=== PATIENT | female | born 1955 | race Caucasian/White ===

== ENCOUNTER → 2018-01-17 15:31 | Outpatient (CLI) | payer OTHER, SELFPAY ==
--- NOTE | 2018-01-17 15:34 | MM_ITS ---
MM Dig screening mamm BI w/CAD ORDERING PHYSICIAN : Ben Madison PATIENT AGE: 62 years GENDER: Female COMPARISON: May 2016, April 2014, & December INDICATION: ITS.REASON: SCREENING 62-year-old no hormones no new complaints. Noncontributory family history TECHNIQUE: Standard CC and MLO images were obtained. R2 CAD reviewed. FINDINGS: Moderately dense inhomogeneous breast pattern bilaterally RIGHT BREAST:. Significant new findings LEFT BREAST:Stable appearance. Again the more focal fatty feature at the medial left breast is noted. The relative denser tissue seen towards superior left breast is a long-standing stable feature since 2010 IMPRESSION: . Stable bilateral mammogram with no significant new findings. Moderately dense heterogeneous breast bilaterally. Follow-up in one year recommended and encouraged BI-RADS Category: 1 Negative RECOMMENDED FOLLOW-UP: 1YR 1 YEAR FOLLOW-UP (A letter has been sent to the patient regarding results of the study.)
== END ==
PROVIDERS: PCP Internal Medicine; Visit Provider Internal Medicine
DX: Z12.31 Encounter for screening mammogram for malignant neoplasm of breast (principal)
CPT/HCPCS: 77067

== ENCOUNTER → 2018-04-11 10:16 | Outpatient (CLI) | payer OTHER, SELFPAY ==
[2018-04-11 11:05] LABS: Blood Urea Nitrogen 14 mg/dL (7-18); Creatinine,Serum 0.84 mg/dL (0.55-1.02); Estimated Glomerular Filt Rate 68 ml/min (>60); GFR (African American) 83 ML/MIN (>60)
--- NOTE | 2018-04-11 11:09 | CT_ITS ---
CT abdomen pelvis w con INDICATION: ITS.REASON: MICROHEMATURIA ORDERING PHYSICIAN: Ben Madison PATIENT AGE: 63 years COMPARISON: None. TECHNIQUE: IV contrast utilized: 75 cc of Isovue-370 IV withscanning at 70 seconds abdomen and pelvis; & then with delayed scanning through abdomen 5 minutes thereafter.. No oral contrast given Axial images obtained with sagittal and coronal reformats. All CT scans at the facility use one or more dose reduction, viz: automated exposure control, ma/kV adjustment per patient size (including targeted exams where dose is matched to indication, i.e. head), or iterative reconstruction technique. FINDINGS: Lung bases clear. No active disease. Heart normal size with coronary artery calcification and stent LAD I believe evident Liver. Benign hepatic cysts . Largest at anterior dome of liver left lobe, up to 2.8 cm maximum transverse diameter x 1.7 cm height. There also small cyst at the inferior right lobe one measuring 7 mm posterior right lobe and another measuring 6 mm just above the gallbladder fossa. Gallbladder. No gallstones. No biliary ductal dilatation. Pancreas. No lesions. No inflammation.. Pancreatic duct is identified, appears normal upper normal caliber/diameter. Spleen appears normal to upper normal size 12 CT in length. . Adrenals unremarkable. No significant findings. TRACT.... No urinary tract calculi nor obstruction. No discrete pathology evident Kidneys appear normal in size with normal enhancement bilaterally. No significant mass lesions. Generous extrarenal pelvis bilaterally but the ureters appear normal in caliber with no calculi along the course of either ureter. Pelvis. Urinary bladder appears satisfactory. Upper normal wall thickness anteriorly Ovaries appear small measuring less than 2.5 cm bilaterally. I suspect there is a small 1 cm x 1.2 cm cyst at the left ovary coronal image 41. Suspect a small uterus remains GI TRACT. Moderate stool throughout the colon most evident right colon. Low-lying cecum. Appendix not clearly identified but I see no evidence of appendicitis. With small bowel unremarkable. Stomach unremarkable. Question perhaps slightly generous soft tissue density at perineum/anal verge region & near introitus which warrants clinical correlation.. May merely be volume averaging of structures here. . Osseous:.. Small sclerotic foci at the sacrum a most likely benign bone islands. Benign Sclerotic changes about the pubis may reflect multigravida pelvis . No significant appearing osseous lesions. Degenerative changes in spine. A pars defects evident at L5 bilaterally along with prominent facet arthropathy and hypertrophy at this level. Moderate facet arthropathy L4/5. Degenerative disc changes L-spine most evident at L2/3 with notable foraminal disc bulge and encroachment at this L2/3 level IMPRESSION.... 1. No urinary tract calculi nor obstruction. No renal mass No definitive pathology identified .. Note Generous extrarenal pelvis bilaterally noted but no hydronephrosis ... Ureters unremarkable. Normal caliber. No calculi. ... Urinary bladder overall satisfactory, with upper normal wall thickness anteriorly 2... Benign hepatic cysts incidentally noted 3. Only Question slightly generous soft tissue density at perineum/anal verge. Likely volume averaging of structures but warrants correlation
== END ==
PROVIDERS: PCP Internal Medicine; Visit Provider Internal Medicine
DX: R31.29 Other microscopic hematuria (principal)
CPT/HCPCS: 36415; 74177; 82565; 84520; Q9967

== ENCOUNTER → 2018-11-06 14:48 | Outpatient (CLI) | payer OTHER, SELFPAY ==
[2018-11-06 15:33] LABS: Troponin I < 0.02 ng/ml (0.00-0.06)
== END ==
PROVIDERS: Visit Provider Internal Medicine
DX: R07.9 Chest pain, unspecified (principal); I25.10 Atherosclerotic heart disease of native coronary artery without angina pectoris
CPT/HCPCS: 36415; 84484; 93005

== ENCOUNTER → 2018-12-05 06:09 | Outpatient (CLI) | payer OTHER, SELFPAY ==
--- NOTE | 2018-12-05 06:14 | NM_ITS ---
CARDIOLITE SPECT MYOCARDIAL PERFUSION [facility], REST AND STRESS: History: Coronary artery disease, history of SD, hypertension, hyperlipidemia, family history, chest pain and shortness of breath. Procedure: Patient exercised on Sam protocol 7 minutes and 15 seconds, resting heart rate was 61 bpm resting blood pressure 172/90, with exercise maximum heart rate achieved was 1 50 bpm which is equal to 96% of the maximum predicted heart rate and a blood pressure was 08/22/1989. Test was started due to shortness of breath and fatigue patient denied any complained of chest pain. Patient has good exercise capacity achieved 10.1mets of workload on treadmill, the blood pressure response to exercise was hypertensive. Electrocardiogram: Resting electrocardiogram showed sinus rhythm, with exercise 1.5 ST segment depression noted from the baseline EKG. The patient exercised Myoview is positive for ischemia. Cardiac stress and resting SPECT images: Cardiac stress and resting SPECT images were obtained using technetium 99 Myoview 32.6 mCi at stress and 10.2 mCi at rest. Gated SPECT further analysis of segmental wall motion and calculation of ejection fraction also done. Cardiac stress and the suspect images show uniform myocardial activity without segmental perfusion abnormality, computer derived ejection fraction 51% with no regional wall motion abnormality, right ventricle is normal size and contractility. Conclusion: 1. The EKG portion of the exercise Myoview is positive for ischemia, patient has good exercise capacity achieved 10.1mets of workload on treadmill, the blood pressure response to exercise was hypertensive, there was no exercise-induced chest discomfort. 2. No scintigraphic evidence of reversible ischemia seen at this level of exercise, computer derived ejection fraction is 51% with no regional wall motion abnormality, right ventricle is normal size and contractility.
--- NOTE | 2018-12-05 06:14 | CA_ITS ---
PROCEDURE: 2-D M-mode and color Doppler study INDICATIONS FOR THE TEST: Chest pain X COPD Heart Murmur Tobacco Smoking Palpitations Fatigue Syncope Edema HypertensionXDiabetes Mellitus Rheumatic Fever SOB DOEXObesity HyperlipidemiaX Family History HD Additional History CAD PATIENT INFORMATION HEIGHT: 69 WEIGHT:157 GENDER: Female B/P:191/86 2-D/M-MODE INTERPRETATION: 2-D MEASUREMENTS OBSERVED VALUES IN CMS Right Ventricular Dimension (RVDd) 1.7 Interventricular Septum (Thickness)(IVsd) .8 Left Ventricular Internal Dimensions(LVIDd) 4.0 Left Ventricular Posterior Wall (Thickness)(LVPWd) .8 Aortic Root 2.7 Aortic Cusp Separation 1.6 Left Atrial Dimensions (LAD) 2.2 2D 1. Left atrium is qualitatively mildly enlarged, left ventricle is normal size, there is no concentric left ventricular hypertrophy, visually estimated ejection fraction approximately 55%, there is abnormal septal motion. 2. The right atrium and right ventricle are normal size and contractility. 3. The aortic valve is minimally thickened and fibrosed. 4. The mitral and tricuspid valve leaflets are minimally thickened. 5. Pulmonic valve is poorly visualized. 6. No significant pericardial effusion noted. DOPPLER INTERROGATION: Doppler interrogation of the aortic, mitral and tricuspid valvular presence of mild mitral and tricuspid regurgitation, tricuspid regurgitation jet velocity is inadequate for calculation of the right ventricular systolic pressure, grade 1 diastolic dysfunction seen without tissue Doppler evidence of raised left atrial pressure. CONCLUSION: 1. Mildly enlarged left atrium, normal left ventricular size, visually estimated ejection fraction 55%, there is abnormal septal motion. Grade 1 diastolic dysfunction seen without tissue Doppler evidence of raised left atrial pressure. 2. Mild mitral and tricuspid regurgitation 3. No significant pericardial effusion noted.
--- NOTE | 2018-12-05 11:20 | HMH.ITSHM ---
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 [] ranitidine carvedilol clopidoregl levothyroxine atorvastatin asa nitro
== END ==
PROVIDERS: PCP Internal Medicine; Visit Provider Internal Medicine Cardiovascular Disease
DX: I25.10 Atherosclerotic heart disease of native coronary artery without angina pectoris (principal); E78.49 Other hyperlipidemia; I10 Essential (primary) hypertension
CPT/HCPCS: 78452; 93017; 93306; A9502

== ENCOUNTER → 2019-01-08 12:53 | Outpatient (CLI) | payer OTHER, SELFPAY ==
--- NOTE | 2019-01-08 13:28 | US_ITS ---
US thyroid HISTORY: Follow-up thyroid nodules ITS.REASON: AMANDA ORDERING PHYSICIAN: Chava Delgado MD PATIENT AGE: 63 years Comparison: None FINDINGS: The right lobe of the thyroid gland measures 4.1 x 0.8 x 1.2 cm. A mixed nodule present in the mid polar region at 4 mm unchanged. A mixed hypoechoic nodule present in the lower pole at 5 x 3 mm nonspecific. This was not readily apparent on the previous exam. There is a small cyst in the upper pole at 2 mm and a small cyst in the lower pole at 2 mm. IMPRESSION: Small right thyroid nodules as described above. A new hypoechoic nodule present in the mid to lower pole at 5 x 3 mm. Probably benign. Continued follow-up recommended
== END ==
PROVIDERS: PCP Internal Medicine; Visit Provider Otolaryngology
DX: E06.3 Autoimmune thyroiditis (principal)
CPT/HCPCS: 76536

== ENCOUNTER → 2019-04-10 15:23 | Outpatient (CLI) | payer OTHER, SELFPAY ==
--- NOTE | 2019-04-10 15:26 | MM_ITS ---
PROCEDURE: MM DIG SCREENING MAMM BI W/CAD CLINICAL INDICATION: SCREENING There is no personal or family history of breast cancer COMPARISON: [facility] DIG MAMM-SCREEN THUY from 04/13/2014 [facility] DIG MAMM-SCREEN THUY from 05/09/2016 [facility] MM Dig screening mamm BI w/CAD from 01/17/2018 TECHNIQUE: Standard CC and MLO images were obtained. R2 CAD reviewed. FINDINGS: Moderate diffuse fibroglandular densities are seen in the central portions of both breasts and the findings are fairly symmetrical bilaterally. There are mole markers on each breast. There are few benign-appearing microcalcifications in each breast. There is no suspicious lesion and no suspicious microcalcifications. IMPRESSION: Moderate breast density with no suspicious lesions seen BI-RAD Category: 2 Benign Finding(s) FOLLOW-UP: 1YR 1 Year Follow-up (A letter has been sent to the patient regarding results of the study.) Dictated by: Dr. Rosalino Castelan MD 04/11/2019 12:[address] Rosalino Castelan MD in [place] 04/11/2019 12:19
== END ==
PROVIDERS: PCP Internal Medicine; Visit Provider Internal Medicine
DX: Z12.31 Encounter for screening mammogram for malignant neoplasm of breast (principal)
CPT/HCPCS: 77067

== ENCOUNTER → 2019-06-04 12:22 | Outpatient (CLI) | payer OTHER, SELFPAY ==
--- NOTE | 2019-06-04 12:23 | US_ITS ---
PROCEDURE: US THYROID CLINICAL INDICATION: Hypothyroidism Follow-up thyroid nodules COMPARISON: THY US thyroid from 01/08/2019 FINDINGS: Right lobe: 3.7 x 1.2 x 1.7 cm. 2 mm cyst upper pole. Spongiform 4 mm nodule mid polar region unchanged. Subtle 3 mm isoechoic area lower pole unchanged. Previously noted hypoechoic nodule in the lower pole not demonstrated on today's exam. Left lobe: Prior left thyroidectomy Isthmus: Additional findings: IMPRESSION: Previously noted hypoechoic nodule lower pole not demonstrated on today's study. Prior left thyroidectomy. No change other smaller nodules on the right which are not suspicious Dictated by: Lang Oakes MD 06/05/2019 16:15 Electronically signed by Lang Oakes MD in [place] 06/05/2019 16:15
== END ==
PROVIDERS: PCP Internal Medicine; Visit Provider Otolaryngology
DX: E03.9 Hypothyroidism, unspecified (principal)
CPT/HCPCS: 76536

== ENCOUNTER → 2020-04-02 09:56 | Outpatient (CLI) | payer MEDICARE, SELFPAY ==
[2020-04-02 10:01] LABS: Microscopic, Urine URINE MICROSCOPIC (MICROSCOPIC)
[2020-04-02 10:15] LABS: Appearance,Urine CLEAR (Clear); Basophils % 0.2 % (0.1-2.0); Blood, Urine 2+ (Negative); Color,Urine DK YELLOW (Yellow); Eosinophils % 0.5 % (0.1-12.0); Glucose,Urine (UA) 2+ (Negative); Hematocrit 45.1 % (37.0-47.0); Hemoglobin 15.4 g/dL (12.2-16.2); Ketones,Urine Negative (Negative); Leukocyte Esterase,Urine Negative (Negative); Lymphocytes # 0.5 K/mm3 (0.7-4.5); Lymphocytes % 5.7 % (10-50); Mean Corpuscular HGB Conc 34.3 g/dL (31.8-35.4); Mean Corpuscular Volume 90.3 fl (81-99); Mean Platelet Volume 7.9 fl (7.4-10.4); Monocytes # 0.5 K/mm3 (0.1-1.0); Monocytes % 5.2 % (1.7-9.3); Neutrophils # 7.9 K/mm3 (1.8-7.8); Neutrophils % 88.4 % (37.0-80.0); Nitrate,Urine Negative (Negative); Platelet Count 152 K/mm3 (142-424); Protein,Urine Negative (Negative); Red Blood Count 4.99 M/mm3 (4.20-5.40); Red Cell Distribution Width 13.6 % (11.5-17.5); Specific Gravity, Urine 1.015 (1.005-1.030)
[2020-04-02 10:19] LABS: Bilirubin,Urine Negative (Negative); MANUAL DIFFERENTIAL MANUAL DIFFERENTIAL (MANUAL DIFF)
[2020-04-02 10:23] LABS: Bacteria,Urine 3+ /lpf; Squamous Epithelial Cell,Urine Occasional #/hpf (0-5)
[2020-04-02 10:32] LABS: Eosinophils % 1 % (0-3); Lymphocytes % 8 % (10-50); Monocytes % 6 % (2-9); Neutrophils % 85 % (42-76); Platelet Estimate Normal; RBC Morphology Normal; Total Cells Counted 100
--- NOTE | 2020-04-02 10:44 | XR_ITS ---
PROCEDURE: XR ACUTE ABDOMEN SERIES Referring Doctor: Ben Madison Patient Age:65Y CLINICAL INDICATION: ACUTE EPIGASTRIC PAIN COMPARISON: CR CXR CHEST(2 VIEWS-NOT PORTABLE) from 09/08/[address] abdomen pelvis w con from 04/11/2018 FINDINGS: Acute abdominal series includes upright chest with flat and upright views of abdomen Upright chest: Stable chest versus August 2014 Lungs well expanded and clear with no active disease. No free air beneath the diaphragm. Heart la and mediastinal structures appears satisfactory. Flat and upright views abdomen: No bowel dilatation nor evidence of obstruction. There is generous gas throughout the large bowel a most evident throughout splenic flexure with moderate stool and gas throughout the transverse and descending colon but more generous stool is seen at the cecum and right colon with moderate gas right colon but Small bowel. Minimal gas. No appreciable dilatation. No significant air-fluid levels at small bowel . Spleen is upper normal in size. Liver unremarkable on plain film. Small huan of calcification medial to the left kidney is most likely vascular rather than calculus (vascular calcifications but no renal calculi were seen on a 2018 CT) . IMPRESSION: No significant bowel dilatation or obstruction . Increased gas is seen throughout the large bowel, and most notable at the splenic flexure... Moderate stool throughout the colon most evident at right colon and cecum Small bowel unremarkable The spleen upper normal in size Dictated by: Mateo Rai MD 04/02/2020 11:16 Mateo Rai MD in [place] 04/02/2020 11:16
[2020-04-02 10:59] LABS: Amylase 6003 U/L (30-110)
== END ==
LOC: LAB 09:57 → RAD 10:41
PROVIDERS: PCP Internal Medicine; Visit Provider Internal Medicine
DX: R10.13 Epigastric pain (principal)
CPT/HCPCS: 36415; 74021; 81001; 82150; 85007; 85025; 87086; 87088; 87186

== ENCOUNTER → 2020-04-05 12:03 | Outpatient (CLI) | payer MEDICARE, SELFPAY ==
--- NOTE | 2020-04-05 12:12 | US_ITS ---
PROCEDURE: US ABDOMEN COMPLETE CLINICAL INDICATION: ACUTE PANCREATITIS, EPIGASTRIC PAIN COMPARISON: CT ABDPELW CT abdomen pelvis w con from 04/11/2018 FINDINGS: PANCREAS: Unremarkable. No obvious mass or abnormal fluid collection. No ductal dilatation LIVER: There is a 3 cm cyst in the left hepatic lobe. The liver has an otherwise unremarkable. There is appropriate direction of blood flow within a non dilated portal vein. There are at least 2 other DISH in ule small Paddock cyst. RIGHT KIDNEY: Unremarkable. Normal size and echogenicity. No hydronephrosis LEFT KIDNEY: Unremarkable. Normal size and echogenicity. No hydronephrosis GALLBLADDER: There is sludge and stones within the gallbladder. Gallbladder wall is thickened measuring up to 6 mm. There is questionable minimal amount of pericholecystic fluid. Common bile duct is mildly prominent at approximately 7 mm. AORTA: No evidence of aneurysmal dilatation. SPLEEN: Unremarkable. Normal size and echogenicity ASCITES: None demonstrated. IMPRESSION: Cholelithiasis with sludge and thickened gallbladder wall and questionable minimal pericholecystic fluid along with mildly prominent common bile duct. Dictated by: Lang Oakes MD 04/05/2020 13:27 Lang Oakes MD in [place] 04/05/2020 13:27
[2020-04-05 12:34] LABS: Amylase 150 U/L (30-110)
== END ==
PROVIDERS: Visit Provider Internal Medicine
DX: R10.13 Epigastric pain (principal); K85.90 Acute pancreatitis without necrosis or infection, unspecified
CPT/HCPCS: 36415; 76700; 82150

== ENCOUNTER → 2020-04-14 11:07 | Outpatient (CLI) | payer MEDICARE, SELFPAY ==
[2020-04-14 12:15] LABS: Basophils # 0.1 K/mm3 (0-0.2); Basophils % 0.9 % (0.1-2.0); Eosinophils # 0.1 K/mm3 (0.0-0.4); Eosinophils % 1.4 % (0.1-12.0); Hematocrit 42.2 % (37.0-47.0); Hemoglobin 13.6 g/dL (12.2-16.2); Lymphocytes % 19.5 % (10-50); Mean Corpuscular HGB Conc 32.2 g/dL (31.8-35.4); Mean Corpuscular Hemoglobin 29.6 pg (27.0-31.2); Mean Corpuscular Volume 91.8 fl (81-99); Mean Platelet Volume 7.6 fl (7.4-10.4); Monocytes # 0.3 K/mm3 (0.1-1.0); Monocytes % 6.2 % (1.7-9.3); Neutrophils # 3.7 K/mm3 (1.8-7.8); Neutrophils % 71.9 % (37.0-80.0); Platelet Count 141 K/mm3 (142-424); Red Cell Distribution Width 13.2 % (11.5-17.5); White Blood Count 5.1 K/mm3 (4.8-10.8)
[2020-04-14 13:44] LABS: Coronavirus 19 IgG Antibody Positive (Negative); Coronavirus 19 IgM Antibody Negative (Negative)
[2020-04-14 14:01] LABS: Alanine Aminotransferase 17 U/L (12-78); Albumin Level 4.1 g/dl (3.5-5.0); Albumin/Globulin Ratio 2.1 (1.1-1.8); Alkaline Phosphatase 90 U/L (38-126); Amylase 119 U/L (30-110); Anion Gap 12.3 mEq/L (5-15); Aspartate Amino Transferase 24 U/L (14-36); Bilirubin,Total 0.7 mg/dl (0.2-1.3); Blood Urea Nitrogen 25 mg/dl (7-17); Calcium 9.1 mg/dl (8.4-10.2); Carbon Dioxide 31 mmol/L (22.0-30.0); Chloride 101 mmol/L (98-107); Estimated Glomerular Filt Rate 56 ml/min (>60); GFR (African American) 67 ML/MIN (>60); Glucose 113 mg/dl (74-100); Lipase 184 U/L (23-300); Potassium 4.3 mmoL/L (3.5-5.1); Sodium 140 mmol/L (136-145); Total Protein,Serum 6.1 g/dl (6.3-8.2)
== END ==
PROVIDERS: Visit Provider Surgery
DX: K80.20 Calculus of gallbladder without cholecystitis without obstruction (principal); Z01.818 Encounter for other preprocedural examination; Z01.84 Encounter for antibody response examination; U07.1 COVID-19
CPT/HCPCS: 36415; 80053; 82150; 83690; 85025; 86328; 93005

== ENCOUNTER 2020-04-16 06:00 | Day surgery (SDC) | payer MEDICARE, SELFPAY ==
[2020-04-14 09:58] VITALS: BMI 23.6
[2020-04-16] VITALS (12 sets, daily range): BP systolic 174–190; BP diastolic 80–92; PULSE 53–65; RESP 12–18; TEMP 36.2–43; O2SAT 95–100
--- NOTE | 2020-04-16 07:47 | P.PN_ITS ---
[facility] Anesthesia Checklist - Structural Data Admitted From: Home Planned Operative Procedure/s: benjamin griffin Consent for Planned Operative Procedure(s) Verified: Yes - Additional verifications Anesthesia Reactions: No Hx Blood Transfusions: No Blood Transfusion Reaction: No - Airway Assessment C-Spine Mobility Assessed: Yes TMJ Mobility Assessed: Yes Dentition: Dentures-good fit - Neurological Assessment Level of Consciousness: Awake, Alert, Appropriate - Anesthesia Plan Anesthesia Risk discussed: Yes Anesthesia Plan: Verified ASA Class: III Anesthesia Type: General [facility] History I have reviewed the patient's past medical history: Yes Medical History: Reports:: Cardiomyopathy, Coronary Artery Disease, Gall Bladder Disease, Hiatal Hernia, Hyperlipidemia, Hypertension Denies:: Cancer, Diabetes Mellitus Type 1, Diabetes Mellitus Type 2, Internal Pacemaker, MRSA, Seizures *Have you ever received a pneumonia vaccine?: No *Have you received a flu vaccine this season?: No Other Medical History: Reports: Hypothyroidism. Denies: Blood Transfusion Reaction Anesthesia experience/problems:: none Other Surgeries: Yes: Cancer Surgery, Cardiac Catheterization, Colonoscopy, Coronary Stent, Thyroidectomy, Tubal Ligation. No: Pacemaker Amputation: No Fractures: No - *Social History Last grade of school completed: 11th or 12th Smoking Status: Never smoker Alcohol Intake: never Alcohol Intake Frequency:: other Substance Use Type: denies use *Occupational Status:: retired Housing: house *Travel in the last 8 weeks: None Family Hx:: Cancer, Heart Attack
--- NOTE | 2020-04-16 08:17 | P.OP_ITS ---
Date of procedure: 04/16/20 Pre-op Diagnosis:: Pancreatitis Chronic calculus cholecystitis Post-op Diagnosis:: Same Procedure performed:: Laparoscopic cholecystectomy Surgeon:: Clifford Burks MD PREFORMING MACHINE OPERATOR:: Dandre Michel Anesthesia: GETA Estimated blood loss (mL): 10 Clinical Note:: Preoperative labs revealed no significant liver function test abnormality. Patient's amylase/lipase were also essentially normal. After discussion with the patient concerning the risks and benefits she wished to proceed with cholecystectomy with no cholangiogram. Operative findings:: Infundibular thickening Operative note:: After informed consent was obtained, the patient was taken to the operating room and placed in the supine position. General anesthesia was induced and the abdomen was prepped and draped in a sterile fashion. After infiltration with local anesthetic an infraumbilical incision was made. A Veress needle was placed in position. The abdomen was insufflated. A 5 mm optical trocar was placed in position. Under direct visualization, a 12 mm trocar was placed in the subxiphoid position and 2 additional 5 mm trocars were placed in the right upper quadrant. The gallbladder was elevated up and over the liver margin. The tissue around the cystic duct was carefully dissected. 3 clips were placed proximally and the duct was transected with harmonic susy. Harmonic susy were then utilized to dissect the gallbladder away from the liver margin with careful attention to the control of the cystic artery. The gallbladder was placed in a retrieval bag and removed through the subxiphoid trocar site. The right upper quadrant was thoroughly irrigated. No active bleeding or bile leak was noted. Fascia at the subxiphoid trocar site was reapproximated utilizing the NeoClose device. The remaining trocars were removed. All wounds were irrigated and skin was closed with 4-0 Monocryl in a subcuticular fashion. Steri-Strips were applied. The patient's anesthetic agents were reversed and extubation was completed prior to transfer to recovery in stable condition. Condition: stable Disposition: PACU Specimens:: Gallbladder and contents Complications:: No immediate
--- NOTE | 2020-04-16 08:26 | P.PN_ITS ---
[facility] Anesthesia Record Part I Intake, IV Amount: 1,500 Estimated blood loss (mL): 0 Urine output (mL): 0 Blood Products used (#): none Blood Pressure: 180/88 SaO2: 95 Pulse Rate: 65 Respiratory Rate: 12 Temperature: 98 F Patient is:: Awake, Stable Stable to PACU at:: 08:25
--- NOTE | 2020-04-16 16:29 | P.PN_ITS ---
[facility] Anesthesia Record Part II Discharge Time: 08:55 Destination: Surgical Day Care (OP Surgery) PACU nurse assessment reviewed?: Yes Patient Condition:: Good Anesthesia Complications:: None Swallowing reflex intact?: Yes Cyanosis?: No Blood Pressure: 183/86 Pulse Rate: 58 Temperature: 98 F Mental Status: Alert & Oriented Pain level:: 2 Nausea and/or vomitting:: None Intake, IV Amount: 0
== END 2020-04-16 09:41 | disposition home or self-care (01) ==
LOC: OR 06:03
PROVIDERS: PCP Internal Medicine; Visit Provider Surgery
PROC: (CPT 47562; principal; 2020-04-16 07:30)
DX: K85.90 Acute pancreatitis without necrosis or infection, unspecified; K80.10 Calculus of gallbladder with chronic cholecystitis without obstruction; I25.10 Atherosclerotic heart disease of native coronary artery without angina pectoris; E78.5 Hyperlipidemia, unspecified; I10 Essential (primary) hypertension; E03.9 Hypothyroidism, unspecified; I42.9 Cardiomyopathy, unspecified; K44.9 Diaphragmatic hernia without obstruction or gangrene
CPT/HCPCS: 47562; 88304; 96374; J2405; J2710

== ENCOUNTER → 2020-05-18 16:38 | Outpatient (CLI) | payer MEDICARE, SELFPAY ==
--- NOTE | 2020-05-18 16:43 | MM_ITS ---
PROCEDURE: MM DIG SCREENING MAMM BI W/CAD Digital Breast Tomosynthesis Included CLINICAL INDICATION: SCREENING There is no personal or family history of breast cancer. COMPARISON: MG [facility] DIG MAMM-SCREEN THUY from 05/09/2016 [facility] MM Dig screening mamm BI w/CAD from 01/17/2018 MG MM DIG SCREENING MAMM BI W/CAD from 04/10/2019 TECHNIQUE: Standard CC and MLO images and 3D Tomosynthesis was obtained. R2 CAD reviewed. FINDINGS: Moderate scattered somewhat heterogenic fibroglandular densities are seen in the central portions of both breast. The findings are fairly symmetrical bilaterally. There are mole markers on each breast. There benign-appearing microcalcifications in each breast. CAD markings were reviewed and they appear to be benign. There is no suspicious lesion in either breast and no suspicious microcalcifications. IMPRESSION: Moderate breast density with no suspicious lesions seen BI-RAD Category: 2 Benign Finding(s) FOLLOW-UP: 1YR 1 Year Follow-up (A letter has been sent to the patient regarding results of the study.) Dictated by: Dr. Rosalino Castelan MD 05/21/2020 13:33 Dr. Rosalino Castelan MD in [place] 05/21/2020 13:33
== END ==
PROVIDERS: PCP Internal Medicine; Visit Provider Internal Medicine
DX: Z12.31 Encounter for screening mammogram for malignant neoplasm of breast (principal)
CPT/HCPCS: 77063; 77067

== ENCOUNTER → 2020-07-20 13:11 | Outpatient (CLI) | payer MEDICARE, SELFPAY ==
--- NOTE | 2020-07-20 13:12 | US_ITS ---
PROCEDURE: US THYROID CLINICAL INDICATION: nmodule F/u rt thyroid Lt lobe removed COMPARISON: US US THYROID from 06/04/2019 FINDINGS: Right lobe: 1.1cm x 4.2cm x 1.5cm there is a mixed 4 mm nodule in the mid polar region of the right lobe. Small cyst is present in the upper pole at 2 mm. In the lower pole there is a subtle 5 mm mixed nodule slightly larger previously measuring 3 mm.. No suspicious nodules evident Prior left thyroidectomy IMPRESSION: 1. Small nodules on the right which are low level of suspicion. Continued annual follow-up suggested 2. Prior left thyroidectomy Dictated by: Lang Oakes MD 07/21/2020 09:47 Lang Oakes MD in [place] 07/21/2020 09:47
== END ==
PROVIDERS: PCP Internal Medicine; Visit Provider Otolaryngology
DX: E03.9 Hypothyroidism, unspecified (principal); E04.1 Nontoxic single thyroid nodule
CPT/HCPCS: 76536

== ENCOUNTER → 2020-11-30 15:37 | Outpatient (CLI) | payer MEDICARE, SELFPAY ==
--- NOTE | 2020-11-30 | ECG_ITS ---
APPROVED REPORT Exam: Resting ECG HR:77 bpm ECG Measurements Heart Rate 77 AXES [place] 146 P 77 QRSd 76 QRS 86 QT 390 T 60 QTc 441 Conclusion Normal sinus rhythm Normal ECG Electronically signed by : Ben Madison, 11/30/2020 16:32:49
--- NOTE | 2020-11-30 15:46 | XR_ITS ---
PROCEDURE: XR CHEST 2V CLINICAL HISTORY: LT CHEST PAIN COMPARISON: CR CXR CHEST(2 VIEWS-NOT PORTABLE) from 09/08/2014 FINDINGS: The cardiomediastinal silhouette and pulmonary vascularity are within normal limits. There has been a prior coronary artery stent placed on the left. COPD changes. Small nodular opacity is present overlying the left 4th rib anteriorly and may be due to summation artifact. Stability may be confirmed with follow-up. There is suggestion of a nondisplaced left 6th rib on the rib detail films not readily apparent on these images. There are mild degenerative changes in the thoracic spine. IMPRESSION: No acute finding. Possible left midlung nodule. Possible nondisplaced left 6th rib fracture as seen on the rib detail films. Dictated by: Lang Oakes MD 11/30/2020 16:46 Lang Oakes MD in [place] 11/30/2020 16:46
--- NOTE | 2020-11-30 15:52 | XR_ITS ---
PROCEDURE: XR RIBS LT 2V CLINICAL INDICATION: LT CHEST PAIN Left rib pain, left chest pain COMPARISON: No exams were available for comparison FINDINGS: Minimal angulation deformity involves the lateral aspect of the left 6th rib and could be due to nondisplaced fracture. No other significant anomalies are evident. There is an old right 7th rib fracture. Degenerative changes are present in the thoracic spine. IMPRESSION: Possible nondisplaced left 6th rib fracture Dictated by: Lang Oakes MD 11/30/2020 16:36 Lang Oakes MD in [place] 11/30/2020 16:36
[2020-11-30 16:32] LABS: Troponin I < 0.01 ng/ml (0.00-0.034)
== END ==
PROVIDERS: Visit Provider Internal Medicine
DX: R07.89 Other chest pain (principal)
CPT/HCPCS: 36415; 71046; 71100; 84484; 93005

== ENCOUNTER → 2021-01-03 10:58 | Outpatient (CLI) | payer MEDICARE, SELFPAY ==
[2021-01-03 12:48] LABS: Free T4 (Free Thyroxine) 0.93 ng/dl (0.78-2.19)
[2021-01-03 16:58] LABS: Thyroid Stimulating Hormone 2.92 uIU/mL (0.465-4.68)
== END ==
PROVIDERS: Visit Provider Otolaryngology
DX: E04.1 Nontoxic single thyroid nodule (principal); E03.9 Hypothyroidism, unspecified
CPT/HCPCS: 36415; 84439; 84443

== ENCOUNTER → 2021-06-21 14:48 | Outpatient (CLI) | payer MEDICARE, SELFPAY ==
[2021-06-21 15:03] LABS: Basophils % 0.7 % (0.1-2.0); Eosinophils # 0.1 K/mm3 (0.0-0.4); Hematocrit 42.1 % (37.0-47.0); Hemoglobin 14.5 g/dL (12.2-16.2); Lymphocytes % 20.4 % (10-50); Mean Corpuscular HGB Conc 34.4 g/dL (31.8-35.4); Mean Corpuscular Hemoglobin 30.6 pg (27.0-31.2); Mean Corpuscular Volume 89.1 fl (81-99); Mean Platelet Volume 8.1 fl (7.4-10.4); Monocytes # 0.3 K/mm3 (0.1-1.0); Monocytes % 6.1 % (1.7-9.3); Neutrophils # 3.5 K/mm3 (1.8-7.8); Neutrophils % 70.8 % (37.0-80.0); Platelet Count 156 K/mm3 (142-424); Red Blood Count 4.72 M/mm3 (4.20-5.40); Red Cell Distribution Width 13.2 % (11.5-17.5)
[2021-06-21 15:38] LABS: Chloride 103 mmol/L (98-107)
[2021-06-21 15:39] LABS: Potassium 4.5 mmoL/L (3.5-5.1); Sodium 141 mmol/L (136-145)
[2021-06-21 15:41] LABS: Alanine Aminotransferase 10 U/L (12-78); Alkaline Phosphatase 87 U/L (38-126); Aspartate Amino Transferase 24 U/L (14-36); Blood Urea Nitrogen 14 mg/dl (7-17); Estimated Glomerular Filt Rate 55 ml/min (>60); GFR (African American) 67 ML/MIN (>60)
[2021-06-21 15:42] LABS: Albumin Level 4.3 g/dl (3.5-5.0); Anion Gap 9.5 mEq/L (5-15); Carbon Dioxide 33 mmol/L (22.0-30.0); Chol/HDL Ratio 2.7 (1-3.5); Cholesterol 105 mg/dl (140-200); Globulin 2.1 g/dL (1.3-3.2); Glucose 83 mg/dl (74-100); HDL Cholesterol 39 mg/dl (40-60); Magnesium 1.9 mg/dl (1.6-2.3); Total Protein,Serum 6.4 g/dl (6.3-8.2); Triglycerides 76 mg/dl (30-150); VLDL Cholesterol 15 mg/dL (0-40)
[2021-06-21 15:53] LABS: Direct LDL Cholesterol 50.54 mg/dL (100-129)
[2021-06-21 15:59] LABS: T4 (Thyroxine) 12.4 ug/dl (5.53-11.0)
[2021-06-21 16:13] LABS: Thyroid Stimulating Hormone 1.72 uIU/mL (0.465-4.68)
== END ==
PROVIDERS: Visit Provider Internal Medicine
DX: I25.10 Atherosclerotic heart disease of native coronary artery without angina pectoris (principal); I10 Essential (primary) hypertension; E03.9 Hypothyroidism, unspecified; E78.5 Hyperlipidemia, unspecified
CPT/HCPCS: 80053; 80061; 83735; 84436; 84443; 85025

== ENCOUNTER → 2021-12-20 12:40 | Outpatient (CLI) | payer MEDICARE, SELFPAY ==
[2021-12-20 14:11] LABS: Chloride 105 mmol/L (98-107); Potassium 4.6 mmoL/L (3.5-5.1); Sodium 141 mmol/L (136-145)
[2021-12-20 14:14] LABS: Alanine Aminotransferase 13 U/L (12-78); Albumin Level 4.2 g/dl (3.5-5.0); Albumin/Globulin Ratio 2.2 (1.1-1.8); Alkaline Phosphatase 106 U/L (38-126); Anion Gap 10.6 mEq/L (5-15); Aspartate Amino Transferase 26 U/L (14-36); Bilirubin,Total 0.9 mg/dl (0.2-1.3); Blood Urea Nitrogen 16 mg/dl (7-17); Calcium 9.1 mg/dl (8.4-10.2); Carbon Dioxide 30 mmol/L (22.0-30.0); Chol/HDL Ratio 2.8 (1-3.5); Cholesterol 97 mg/dl (140-200); Estimated Glomerular Filt Rate 63 ml/min (>60); GFR (African American) 76 ML/MIN (>60); Globulin 1.9 g/dL (1.3-3.2); Glucose 89 mg/dl (74-100); HDL Cholesterol 35 mg/dl (40-60); Total Protein,Serum 6.1 g/dl (6.3-8.2); Triglycerides 73 mg/dl (30-150); VLDL Cholesterol 15 mg/dL (0-40)
[2021-12-20 14:26] LABS: Direct LDL Cholesterol 46.33 mg/dL (100-129)
== END ==
LOC: LAB 12:41 → LAB.DROPOF 12:42
PROVIDERS: PCP Internal Medicine; Visit Provider Internal Medicine
DX: I25.10 Atherosclerotic heart disease of native coronary artery without angina pectoris (principal); I10 Essential (primary) hypertension; E78.5 Hyperlipidemia, unspecified
CPT/HCPCS: 80053; 80061

== ENCOUNTER → 2022-02-27 09:38 | Outpatient (CLI) | payer MEDICARE, SELFPAY ==
--- NOTE | 2022-02-27 09:41 | MM_ITS ---
PROCEDURE INFORMATION: Exam: MG Bilateral Screening 3D Mammography Exam date and time: 02/27/2022 9:49 AM Age: 67 years old Clinical indication: Screening examination TECHNIQUE: Imaging protocol: Bilateral Screening tomosynthesis and 2D mammography including computer-aided detection (CAD) when performed. COMPARISON: 1. MG MM DIG SCREENING MAMM BI W/CAD 05/18/2020 5:01 PM 2. MG MM DIG SCREENING MAMM BI W/CAD 04/10/2019 3:34 PM 3. MG [facility] MM Dig screening mamm BI w/CAD FINDINGS: MAMMOGRAPHY: Breast composition: The breasts are heterogeneously dense, which may obscure small masses. Mass: No suspicious masses. Architectural distortion: No suspicious distortion. Calcifications: No suspicious calcifications. Asymmetric density: None. Skin thickening: None. Axillary adenopathy: None. IMPRESSION: No mammographic evidence of malignancy. Annual screening is recommended unless otherwise clinically indicated. ASSESSMENT: BI-RADS Category 1: Negative
== END ==
PROVIDERS: PCP Internal Medicine; Visit Provider Internal Medicine
DX: Z12.31 Encounter for screening mammogram for malignant neoplasm of breast (principal)
CPT/HCPCS: 77063; 77067

== ENCOUNTER → 2022-08-21 11:36 | Outpatient (CLI) | payer MEDICARE, SELFPAY ==
[2022-08-21 13:25] LABS: Chloride 107 mmol/L (98-107); Potassium 4.2 mmoL/L (3.5-5.1); Sodium 143 mmol/L (136-145)
[2022-08-21 13:28] LABS: Alanine Aminotransferase 14 U/L (12-78); Albumin Level 4.3 g/dl (3.5-5.0); Alkaline Phosphatase 99 U/L (38-126); Anion Gap 11.2 mEq/L (5-15); Aspartate Amino Transferase 28 U/L (14-36); Bilirubin,Total 1.1 mg/dl (0.2-1.3); Blood Urea Nitrogen 16 mg/dl (7-17); Calcium 8.6 mg/dl (8.4-10.2); Carbon Dioxide 29 mmol/L (22.0-30.0); Chol/HDL Ratio 2.4 (1-3.5); Cholesterol 91 mg/dl (140-200); Estimated Glomerular Filt Rate 55 ml/min (>60); GFR (African American) 67 ML/MIN (>60); Globulin 2.1 g/dL (1.3-3.2); Glucose 78 mg/dl (74-100); HDL Cholesterol 38 mg/dl (40-60); Total Protein,Serum 6.4 g/dl (6.3-8.2); Triglycerides 76 mg/dl (30-150); VLDL Cholesterol 15 mg/dL (0-40)
[2022-08-21 13:41] LABS: Direct LDL Cholesterol 43.46 mg/dL (100-129)
== END ==
PROVIDERS: PCP Internal Medicine; Visit Provider Internal Medicine
DX: I25.10 Atherosclerotic heart disease of native coronary artery without angina pectoris (principal); I10 Essential (primary) hypertension; E78.5 Hyperlipidemia, unspecified
CPT/HCPCS: 80053; 80061

== ENCOUNTER → 2022-09-25 11:22 | Outpatient (CLI) | payer MEDICARE, SELFPAY ==
[2022-09-25 13:31] LABS: Thyroid Stimulating Hormone 2.09 uIU/mL (0.465-4.68)
== END ==
PROVIDERS: PCP Internal Medicine; Visit Provider Otolaryngology
DX: E03.9 Hypothyroidism, unspecified (principal)
CPT/HCPCS: 36415; 84443

== ENCOUNTER → 2023-02-19 13:16 | Outpatient (CLI) | payer MEDICARE, SELFPAY ==
[2023-02-19 16:56] LABS: Basophils % 0.3 % (0.1-2.0); Eosinophils # 0.1 K/mm3 (0.0-0.4); Eosinophils % 1.5 % (0.1-12.0); Hematocrit 41.8 % (37.0-47.0); Hemoglobin 13.8 g/dL (12.2-16.2); Lymphocytes # 0.9 K/mm3 (0.7-4.5); Lymphocytes % 16.9 % (10-50); Mean Corpuscular Hemoglobin 29.9 pg (27.0-31.2); Mean Corpuscular Volume 90.4 fl (81-99); Mean Platelet Volume 10.2 fl (7.4-10.4); Monocytes # 0.3 K/mm3 (0.1-1.0); Monocytes % 5.9 % (1.7-9.3); Neutrophils # 4.1 K/mm3 (1.8-7.8); Neutrophils % 75.4 % (37.0-80.0); Platelet Count 154 K/mm3 (142-424); Red Blood Count 4.62 M/mm3 (4.20-5.40); Red Cell Distribution Width 13.7 % (11.5-17.5); White Blood Count 5.5 K/mm3 (4.8-10.8)
[2023-02-19 17:41] LABS: Alanine Aminotransferase 18 U/L (12-78); Albumin Level 4.2 g/dl (3.5-5.0); Alkaline Phosphatase 109 U/L (38-126); Anion Gap 13.9 mEq/L (5-15); Aspartate Amino Transferase 27 U/L (14-36); Blood Urea Nitrogen 17 mg/dl (7-17); Calcium 8.7 mg/dl (8.4-10.2); Carbon Dioxide 30 mmol/L (22.0-30.0); Chloride 104 mmol/L (98-107); Chol/HDL Ratio 2.7 (1-3.5); Cholesterol 81 mg/dl (140-200); Estimated Glomerular Filt Rate 55 ml/min (>60); GFR (African American) 67 ML/MIN (>60); Globulin 2.1 g/dL (1.3-3.2); Glucose 67 mg/dl (74-100); HDL Cholesterol 30 mg/dl (40-60); Potassium 3.9 mmoL/L (3.5-5.1); Sodium 144 mmol/L (136-145); Total Protein,Serum 6.3 g/dl (6.3-8.2); Triglycerides 66 mg/dl (30-150); VLDL Cholesterol 13 mg/dL (0-40)
[2023-02-19 17:51] LABS: Direct LDL Cholesterol 39.06 mg/dL (100-129)
== END ==
PROVIDERS: PCP Internal Medicine; Visit Provider Internal Medicine
DX: I10 Essential (primary) hypertension (principal); I25.10 Atherosclerotic heart disease of native coronary artery without angina pectoris; E03.9 Hypothyroidism, unspecified; E78.5 Hyperlipidemia, unspecified; N95.1 Menopausal and female climacteric states
CPT/HCPCS: 80053; 80061; 85025

== ENCOUNTER → 2023-02-28 10:33 | Outpatient (CLI) | payer MEDICARE, SELFPAY ==
--- NOTE | 2023-02-28 10:36 | MM_ITS ---
PROCEDURE INFORMATION: Exam: MG Bilateral Screening 3D Mammography Exam date and time: 02/28/2023 10:41 AM Age: 68 years old Clinical indication: Screening mammogram TECHNIQUE: Imaging protocol: Bilateral Screening tomosynthesis and 2D mammography including computer-aided detection (CAD) when performed. COMPARISON: 1. MG MM DIG SCREENING MAMM BI W/CAD 02/27/2022 9:49 AM 2. MG MM DIG SCREENING MAMM BI W/CAD 05/18/2020 5:01 PM 3. MG MM DIG SCREENING MAMM BI W/CAD 04/10/2019 3:34 PM 4. MG SCBI MM Dig screening mamm BI w/CAD 01/17/2018 3:43 PM FINDINGS: MAMMOGRAPHY: Breast composition: The breast is heterogeneously dense, which may obscure small masses. Mass: None. Architectural distortion: No new or suspicious architectural distortion. Calcifications: Stable benign-appearing calcifications are present. No new or suspicious cluster of microcalcifications have developed. Asymmetric density: No new or suspicious asymmetric density is present Skin thickening: None. Axillary adenopathy: None. IMPRESSION: No mammographic evidence of malignancy. Recommend annual screening mammography unless otherwise clinically indicated. ASSESSMENT: BI-RADS category 2: Benign
== END ==
PROVIDERS: PCP Internal Medicine; Visit Provider Internal Medicine
DX: Z12.31 Encounter for screening mammogram for malignant neoplasm of breast (principal)
CPT/HCPCS: 77063; 77067

== ENCOUNTER → 2023-04-17 08:38 | Outpatient (CLI) | payer MEDICARE, SELFPAY ==
--- NOTE | 2023-04-17 08:38 | CA_ITS ---
FINAL REPORT CLINICAL HISTORY: dizziness FINDINGS: An ultrasound of the carotid arteries was performed. Duplex Doppler evaluation with spectral analysis was performed. The peak systolic velocity of the right common carotid artery is 66 cm/s. The peak systolic velocity of the right internal carotid artery is 114 cm/s and end diastolic velocity 32 cm/s. A mild amount of plaque is present. The right external carotid artery is patent. The right vertebral artery is patent with antegrade flow. ICA/CCA ratio: 1.8 The peak systolic velocity of the left common carotid artery is 76 cm/s. The peak systolic velocity of the left internal carotid artery is 121 cm/s and end diastolic velocity 33 cm/s. A mild amount of plaque is present. The left external carotid artery is patent. The left vertebral artery is patent with antegrade flow. ICA/CCA ratio: 1.6 Bilateral patent vertebral arteries with antegrade flow. IMPRESSION: Less than 50% carotid stenosis bilaterally. Reviewed, Interpreted and Dictated by Melchor Vallecillo III, MD Transcribed by Laurent Woo Authenticated and [facility]
== END ==
PROVIDERS: PCP Internal Medicine; Visit Provider Physician Assistant
DX: R42 Dizziness and giddiness (principal)
CPT/HCPCS: 93880

== ENCOUNTER → 2023-04-27 07:48 | Outpatient (CLI) | payer MEDICARE, SELFPAY ==
--- NOTE | 2023-04-27 07:53 | CA_ITS ---
APPROVED REPORT EXAM: Comprehensive 2D, Doppler, and color-flow Echocardiogram It Account Manager: FRANCISCO Smalls, RVS Ht: 5 ft 9 in Wt: 169lbs BSA: 1.92 BP: 193/89 mmHg Indications: SOA, CHF, CAD, HTN, HLD Echo Enhancing Agent Comments: Known liver cyst noted subcostally increasing in dimension since 04/2020 2D Dimensions Aortic Root 2.84 cm LA Volume 68.80 mL Left Atrium 3.33 cm LA Volume Index 35.83 mL/m2 (M/F) 16-34 LVOT 2.14 cm (M/F) 1.5-2.5 M-Mode Dimensions RVDd 1.85 cm (0.9-2.6) LA Diam 3.17 cm (1.9-4.0) LVDd 5.09 cm (3.5-5.7) Ao Diam 2.89 cm (2.0-3.7) LVDs 3.70 cm (3.5-5.7) IVSd 0.82 cm (0.6-1.1) PWd 0.97 cm (0.6-1.1) EF (Teich) 52.80% EPSs 0.63 cm FS 27.30% EDV (Teich) 123.20 mL ESV (Teich) 58.10 mL LV Diastology E Decel Time 240.00 (160-240 msec) E/A Ratio 0.83 MED E' 5.10 (< 7 cm/sec) MED A' 8.80 cm/s E'/MED E' Ratio 13.49 (>14) LAT E' 5.90 (<10 cm/sec) LAT A' 11.00 cm/s E/LAT E' Ratio 11.66 (>14) Aortic Valve LVOT Max 86.00 (70-110 cm/s) LVOT VTI 18.79 cm AoV Peak Naldo. 143.00 (50-130 cm/s) AI PHT 291.00 ms AO Peak GR. 8.20 mmHg AO Mean GR. 4.10 (<5 mmHg) AO VTI 30.46 (18-25 cm) PARVIZ (VTI) 2.22 (2.5-4.5 cm2) Mitral Valve MV A Velocity 83.00 (40-130 cm/s) E/A Ratio 0.83 MV Decel. Time 240.00 (160-240 ms) Pulmonary Valve MT End VMAX 153.00 cm/s Tricuspid Valve TR P. Velocity 223.00 cm/s RAP Estimate 10.00 mmHg RVSP 29.90 mmHg Left Ventricle The left ventricle is normal size. The left ventricular systolic function is low-normal. There is increased LV wall thickness. There is low-normal LV segmental wall motion. Diastolic function is indeterminate. LVEF is 50%. Right Ventricle The right ventricle is normal size. The right ventricular systolic function is normal. Atria Left atrium is mildly dilated. The right atrium size is mildly dilated. There is no Doppler evidence of interatrial shunt. Aortic Valve The aortic valve is mildly thickened. There is no aortic valvular stenosis. Mild aortic regurgitation. Mitral Valve The mitral valve is normal in structure. No evidence of mitral valve stenosis. Trace mitral regurgitation. Tricuspid Valve The tricuspid valve leaflets are thin and pliable. Mild tricuspid regurgitation. RVSP is 20-25 mmHg. Pulmonic Valve The pulmonary valve is normal in structure. Mild pulmonic regurgitation. Great Vessels The aortic root is normal in size. The ascending aorta is normal in size. IVC is normal in size and collapses >50% with inspiration. Pericardium There is no pericardial effusion. Other Information Study Quality: Fair Conclusion Low-normal LV systolic funcion (LVEF 50%). Mild biatrial dilation. Mild AI. Mild TR. Electronically signed by : Susan Stanley MD 04/29/2023 21:06:51
== END ==
PROVIDERS: PCP Internal Medicine; Visit Provider Physician Assistant
DX: I25.10 Atherosclerotic heart disease of native coronary artery without angina pectoris (principal); I11.0 Hypertensive heart disease with heart failure; I50.20 Unspecified systolic (congestive) heart failure; R06.00 Dyspnea, unspecified; R42 Dizziness and giddiness; E78.5 Hyperlipidemia, unspecified
CPT/HCPCS: 93306

== ENCOUNTER 2023-08-22 12:17 | Outpatient (CLI) | payer MEDICARE, SELFPAY ==
[2023-08-22 13:34] LABS: Alanine Aminotransferase 26 U/L (12-78); Albumin Level 4.3 g/dl (3.5-5.0); Albumin/Globulin Ratio 2.3 (1.1-1.8); Alkaline Phosphatase 108 U/L (38-126); Anion Gap 8.6 mEq/L (5-15); Aspartate Amino Transferase 31 U/L (14-36); Bilirubin,Total 0.9 mg/dl (0.2-1.3); Blood Urea Nitrogen 15 mg/dl (7-17); Calcium 9.3 mg/dl (8.4-10.2); Carbon Dioxide 32 mmol/L (22.0-30.0); Chloride 105 mmol/L (98-107); Chol/HDL Ratio 3.2 (1-3.5); Cholesterol 92 mg/dl (140-200); Estimated Glomerular Filt Rate 62 ml/min (>60); GFR (African American) 75 ML/MIN (>60); Globulin 1.9 g/dL (1.3-3.2); Glucose 86 mg/dl (74-100); HDL Cholesterol 29 mg/dl (40-60); Potassium 4.6 mmoL/L (3.5-5.1); Sodium 141 mmol/L (136-145); Total Protein,Serum 6.2 g/dl (6.3-8.2); Triglycerides 74 mg/dl (30-150); VLDL Cholesterol 15 mg/dL (0-40)
[2023-08-22 13:45] LABS: Direct LDL Cholesterol 49.84 mg/dL (100-129)
[2023-08-22 14:04] LABS: Thyroid Stimulating Hormone 3.77 uIU/mL (0.465-4.68)
== END 2023-08-22 23:59 ==
LOC: LAB.DROPOF 12:18
PROVIDERS: PCP Internal Medicine; Visit Provider Internal Medicine
DX: I11.9 Hypertensive heart disease without heart failure (principal); I25.10 Atherosclerotic heart disease of native coronary artery without angina pectoris; I25.2 Old myocardial infarction; E03.9 Hypothyroidism, unspecified; E78.5 Hyperlipidemia, unspecified; N95.1 Menopausal and female climacteric states; F41.9 Anxiety disorder, unspecified; J30.9 Allergic rhinitis, unspecified
CPT/HCPCS: 80053; 80061; 84443

== ENCOUNTER 2023-09-19 10:58 | Outpatient (CLI) | payer MEDICARE, SELFPAY ==
[2023-09-19 13:18] LABS: Thyroid Stimulating Hormone 2.78 uIU/mL (0.465-4.68)
[2023-09-19 13:35] LABS: Free T4 (Free Thyroxine) 1.35 ng/dl (0.78-2.19)
== END 2023-09-19 23:59 ==
LOC: LAB 11:00
PROVIDERS: PCP Internal Medicine; Visit Provider Otolaryngology
DX: I10 Essential (primary) hypertension (principal); E03.9 Hypothyroidism, unspecified
CPT/HCPCS: 36415; 84439; 84443

== ENCOUNTER 2024-02-20 12:07 | Outpatient (CLI) | payer MEDICARE, SELFPAY ==
[2024-02-20 14:19] LABS: Basophils % 0.5 % (0.1-2.0); Eosinophils # 0.1 K/mm3 (0.0-0.4); Eosinophils % 1.7 % (0.1-12.0); Hematocrit 45.9 % (37.0-47.0); Hemoglobin 14.4 g/dL (12.2-16.2); Lymphocytes % 17.4 % (10-50); Mean Corpuscular HGB Conc 31.4 g/dL (31.8-35.4); Mean Corpuscular Volume 95.5 fl (81-99); Mean Platelet Volume 9.8 fl (7.4-10.4); Monocytes # 0.3 K/mm3 (0.1-1.0); Monocytes % 5.3 % (1.7-9.3); Neutrophils # 4.2 K/mm3 (1.8-7.8); Platelet Count 163 K/mm3 (142-424); Red Blood Count 4.81 M/mm3 (4.20-5.40); Red Cell Distribution Width 13.9 % (11.5-17.5); White Blood Count 5.7 K/mm3 (4.8-10.8)
[2024-02-20 14:38] LABS: Chloride 105 mmol/L (98-107); Potassium 4.3 mmoL/L (3.5-5.1); Sodium 140 mmol/L (136-145)
[2024-02-20 14:40] LABS: Blood Urea Nitrogen 18 mg/dl (7-17); Estimated Glomerular Filt Rate 49 ml/min (>60); GFR (African American) 60 ML/MIN (>60)
[2024-02-20 14:41] LABS: Alanine Aminotransferase 14 U/L (12-78); Alkaline Phosphatase 85 U/L (38-126); Anion Gap 9.3 mEq/L (5-15); Aspartate Amino Transferase 25 U/L (14-36); Bilirubin,Total 1.1 mg/dl (0.2-1.3); Calcium 8.7 mg/dl (8.4-10.2); Carbon Dioxide 30 mmol/L (22.0-30.0); Chol/HDL Ratio 2.8 (1-3.5); Cholesterol 114 mg/dl (140-200); Glucose 79 mg/dl (74-100); HDL Cholesterol 41 mg/dl (40-60); Total Protein,Serum 6.4 g/dl (6.3-8.2); Triglycerides 74 mg/dl (30-150); VLDL Cholesterol 15 mg/dL (0-40)
[2024-02-20 14:52] LABS: Direct LDL Cholesterol 54.51 mg/dL (100-129)
[2024-02-20 16:20] LABS: Albumin Level 4.3 g/dl (3.5-5.0); Globulin 2.1 g/dL (1.3-3.2)
== END 2024-02-20 23:59 | disposition home or self-care (01) ==
LOC: LAB.DROPOF 02-21 12:08
PROVIDERS: PCP Internal Medicine; Visit Provider Internal Medicine
DX: I10 Essential (primary) hypertension (principal); E78.2 Mixed hyperlipidemia; I25.10 Atherosclerotic heart disease of native coronary artery without angina pectoris; E78.5 Hyperlipidemia, unspecified
CPT/HCPCS: 80053; 80061; 85025

== ENCOUNTER 2024-03-05 12:35 | Outpatient (CLI) | payer MEDICARE, SELFPAY ==
--- NOTE | 2024-03-05 12:36 | MM_ITS ---
PROCEDURE INFORMATION: Exam: MG Bilateral Screening 3D Mammography Exam date and time: 03/05/2024 12:50 PM Age: 69 years old Clinical indication: Screening examination. TECHNIQUE: Imaging protocol: Bilateral Screening tomosynthesis and 2D mammography including computer-aided detection (CAD) when performed. COMPARISON: 1. MG MM DIG SCREENING MAMM BI W/CAD 02/28/2023 10:41 AM 2. MG MM DIG SCREENING MAMM BI W/CAD 02/27/2022 9:49 AM FINDINGS: MAMMOGRAPHY: Breast composition: There are scattered areas of fibroglandular density. Mass: None. Architectural distortion: None. Calcifications: No suspicious calcifications. Asymmetric density: None. Skin thickening: None. Axillary adenopathy: None. IMPRESSION: No mammographic evidence of malignancy. Annual screening is recommended unless otherwise clinically indicated. ASSESSMENT: BI-RADS Category 1: Negative
== END 2024-03-05 23:59 | disposition home or self-care (01) ==
LOC: RAD 12:36
PROVIDERS: PCP Internal Medicine; Visit Provider Internal Medicine
DX: Z12.31 Encounter for screening mammogram for malignant neoplasm of breast (principal); Z12.39 Encounter for other screening for malignant neoplasm of breast
CPT/HCPCS: 77063; 77067

== ENCOUNTER 2024-08-25 09:50 | Outpatient (CLI) | payer MEDICARE, SELFPAY ==
[2024-08-25 18:03] LABS: Alanine Aminotransferase 14 U/L (12-78); Albumin Level 4.6 g/dl (3.5-5.0); Albumin/Globulin Ratio 2.6 (1.1-1.8); Alkaline Phosphatase 82 U/L (38-126); Anion Gap 9.5 mEq/L (5-15); Aspartate Amino Transferase 24 U/L (14-36); Bilirubin,Total 1.2 mg/dl (0.2-1.3); Blood Urea Nitrogen 16 mg/dl (7-17); Calcium 9.4 mg/dl (8.4-10.2); Carbon Dioxide 31 mmol/L (22.0-30.0); Chloride 103 mmol/L (98-107); Chol/HDL Ratio 3.4 (1-3.5); Cholesterol 105 mg/dl (140-200); Estimated Glomerular Filt Rate 55 ml/min (>60); GFR (African American) 67 ML/MIN (>60); Globulin 1.8 g/dL (1.3-3.2); Glucose 72 mg/dl (74-100); HDL Cholesterol 31 mg/dl (40-60); Potassium 4.5 mmoL/L (3.5-5.1); Sodium 139 mmol/L (136-145); Total Protein,Serum 6.4 g/dl (6.3-8.2); Triglycerides 72 mg/dl (30-150); VLDL Cholesterol 14 mg/dL (0-40)
[2024-08-25 18:13] LABS: Direct LDL Cholesterol 48.45 mg/dL (100-129)
[2024-08-25 18:33] LABS: Thyroid Stimulating Hormone 2.07 uIU/mL (0.465-4.68)
== END 2024-08-25 23:59 | disposition home or self-care (01) ==
LOC: LAB.DROPOF 08-26 16:27
PROVIDERS: PCP Internal Medicine; Visit Provider Internal Medicine
DX: E78.5 Hyperlipidemia, unspecified (principal); I10 Essential (primary) hypertension; I25.10 Atherosclerotic heart disease of native coronary artery without angina pectoris; E03.9 Hypothyroidism, unspecified
CPT/HCPCS: 80053; 80061; 84443

== ENCOUNTER 2024-10-27 10:56 | Outpatient (CLI) | payer MEDICARE, SELFPAY ==
[2024-10-27 12:27] LABS: Free T4 (Free Thyroxine) 1.25 ng/dl (0.78-2.19)
[2024-10-27 12:39] LABS: Thyroid Stimulating Hormone 2.11 uIU/mL (0.465-4.68)
== END 2024-10-27 23:59 | disposition home or self-care (01) ==
LOC: LAB 11:00
PROVIDERS: PCP Internal Medicine; Visit Provider Otolaryngology
DX: E03.9 Hypothyroidism, unspecified (principal)
CPT/HCPCS: 36415; 84439; 84443

== ENCOUNTER 2025-02-23 10:05 | Outpatient (CLI) | payer MEDICARE, SELFPAY ==
[2025-02-23 14:25] LABS: Hematocrit 43.5 % (37.0-47.0); Hemoglobin 14.3 g/dL (12.2-16.2); Immature Granulocytes % 0.5 %; Mean Corpuscular HGB Conc 32.9 g/dL (31.8-35.4); Mean Corpuscular Hemoglobin 29.8 pg (27.0-31.2); Mean Corpuscular Volume 90.6 fl (81-99); Nucleated Red Blood Cells % 0 %; Platelet Count 141 K/mm3 (142-424); Red Blood Count 4.80 M/mm3 (4.20-5.40); Red Cell Distribution Width-SD 40.7 fL; White Blood Count 5.8 K/mm3 (4.8-10.8)
[2025-02-23 15:05] LABS: Albumin Level 4.4 g/dl (3.5-5.0); Chloride 105 mmol/L (98-107); Sodium 142 mmol/L (136-145)
[2025-02-23 15:06] LABS: Potassium 4.3 mmoL/L (3.5-5.1)
[2025-02-23 15:08] LABS: Alanine Aminotransferase 13 U/L (12-78); Albumin/Globulin Ratio 2.2 (1.1-1.8); Anion Gap 12.3 mEq/L (5-15); Aspartate Amino Transferase 28 U/L (14-36); Blood Urea Nitrogen 18 mg/dl (7-17); Carbon Dioxide 29 mmol/L (22.0-30.0); Creatinine,Serum 1.00 mg/dl (0.52-1.04); Estimated Glomerular Filt Rate 55 ml/min (>60); GFR (African American) 66 ML/MIN (>60); Globulin 2.0 g/dL (1.3-3.2); Total Protein,Serum 6.4 g/dl (6.3-8.2)
[2025-02-23 15:09] LABS: Alkaline Phosphatase 83 U/L (38-126); Bilirubin,Total 1.1 mg/dl (0.2-1.3); Calcium 9.1 mg/dl (8.4-10.2); Cholesterol 102 mg/dl (140-200); Glucose 84 mg/dl (74-100); HDL Cholesterol 39 mg/dl (40-60); Triglycerides 79 mg/dl (30-150)
== END 2025-02-23 23:59 | disposition home or self-care (01) ==
LOC: LAB.DROPOF 02-25 12:19
PROVIDERS: PCP Internal Medicine; Visit Provider Internal Medicine
DX: I25.10 Atherosclerotic heart disease of native coronary artery without angina pectoris (principal); I10 Essential (primary) hypertension; E78.5 Hyperlipidemia, unspecified
CPT/HCPCS: 80053; 80061; 85025

== ENCOUNTER 2025-03-09 12:39 | Outpatient (CLI) | payer MEDICARE, SELFPAY ==
--- NOTE | 2025-03-09 13:00 | MM_ITS ---
PROCEDURE INFORMATION: Exam: MG Bilateral Screening 3D Mammography Exam date and time: 03/09/2025 1:09 PM Age: 70 years old Clinical indication: Screening examination. TECHNIQUE: Imaging protocol: Bilateral Screening tomosynthesis and 2D mammography including computer-aided detection (CAD) when performed. COMPARISON: 1. MG MM DIG SCREENING MAMM BI W/CAD 03/05/2024 12:50 PM 2. MG MM DIG SCREENING MAMM BI W/CAD 02/28/2023 10:41 AM FINDINGS: MAMMOGRAPHY: Breast composition: There are scattered areas of fibroglandular density. Mass: None. Architectural distortion: None. Calcifications: No suspicious calcifications. Asymmetric density: None. Skin thickening: None. Axillary adenopathy: None. IMPRESSION: No mammographic evidence of malignancy. Annual screening is recommended unless otherwise clinically indicated. ASSESSMENT: BI-RADS Category 1: Negative.
== END 2025-03-09 23:59 | disposition home or self-care (01) ==
LOC: RAD 12:40
PROVIDERS: PCP Internal Medicine; Visit Provider Internal Medicine
DX: Z12.31 Encounter for screening mammogram for malignant neoplasm of breast (principal); R92.323 Mammographic fibroglandular density, bilateral breasts
CPT/HCPCS: 77063; 77067

== ENCOUNTER 2025-04-06 08:45 | Outpatient (CLI) | payer MEDICARE, SELFPAY ==
[2025-04-06 17:57] LABS: Hematocrit 43.0 % (37.0-47.0); Hemoglobin 14.1 g/dL (12.2-16.2); Immature Granulocytes % 0.2 %; Mean Corpuscular HGB Conc 32.8 g/dL (31.8-35.4); Mean Corpuscular Hemoglobin 30.0 pg (27.0-31.2); Mean Corpuscular Volume 91.5 fl (81-99); Nucleated Red Blood Cells % 0 %; Platelet Count 145 K/mm3 (142-424); Red Blood Count 4.70 M/mm3 (4.20-5.40); Red Cell Distribution Width-SD 42.1 fL; White Blood Count 5.8 K/mm3 (4.8-10.8)
== END 2025-04-06 23:59 ==
LOC: LAB.DROPOF 04-07 01:55
PROVIDERS: PCP Internal Medicine; Visit Provider Internal Medicine
DX: R89.9 Unspecified abnormal finding in specimens from other organs, systems and tissues (principal)
CPT/HCPCS: 85025

== ENCOUNTER 2025-04-15 10:53 | Outpatient (CLI) | payer MEDICARE, SELFPAY ==
--- NOTE | 2025-04-15 11:15 | CA_ITS ---
FINAL REPORT CLINICAL HISTORY: varicose veins, bruising and discoloration LLE. Denies trauma. HTN, HLD, CAD. FINDINGS: DUPLEX VENOUS SONOGRAPHY OF THE LEFT LOWER EXTREMITY Multiple transverse and longitudinal scans were performed of the femoropopliteal deep venous system, with augmentation and compression maneuvers. Normal phasic flow was noted in the visualized deep venous system. No intraluminal increased echogenicity is noted to suggest thrombus. There is normal compression and augmentation of the venous structures. No abnormal venous collaterals are seen. IMPRESSION: No evidence of deep venous thrombosis of the left lower extremity. Reviewed, Interpreted and Dictated by Blanca Zamora MD Transcribed by Anny Linder Authenticated and [facility]
== END 2025-04-15 23:59 | disposition home or self-care (01) ==
LOC: RT 10:54
PROVIDERS: PCP Internal Medicine; Visit Provider Physician Assistant
DX: I83.812 Varicose veins of left lower extremity with pain (principal); I83.91 Asymptomatic varicose veins of right lower extremity; T14.8XXA Other injury of unspecified body region, initial encounter; L81.9 Disorder of pigmentation, unspecified
CPT/HCPCS: 93971